=== PATIENT | male | born 1985 | race Caucasian/White ===

== ENCOUNTER 2017-07-14 15:40 | Emergency (ER) | payer OTHER ==
--- NOTE | 2017-07-14 16:13 | PD ---
HPI Chief Complaint: Alcohol intoxication Time Seen by Provider: 16:04 Travel History International Travel<30 days: No Contact w/Intl Traveler<30days: No History of Present Illness HPI 32-year-old male arrives by EMS. He is a [place] act. He drank alcohol today. [place]. He reports drinking approximately 2 drinks. He denies drug abuse. He has no medical complaints at the time of ER evaluation. [facility] Social History Tobacco Use: Yes Review of Systems Except as stated in HPI: all other systems reviewed are Neg General / Constitutional: No: Fever HENT: No: Lightheadedness Physical Exam Narrative GENERAL: 32 yo M, WNWD, cooperative no acute distress SKIN: Warm and dry. HEAD: Atraumatic. Normocephalic. EYES: Pupils equal and round. No scleral icterus. No injection or drainage. ENT: No nasal bleeding or discharge. Mucous membranes pink and moist. NECK: Trachea midline. No JVD. CARDIOVASCULAR: Regular rate and rhythm. RESPIRATORY: No accessory muscle use. Clear to auscultation. Breath sounds equal bilaterally. GASTROINTESTINAL: Abdomen soft, non-tender, nondistended. Hepatic and splenic margins not palpable. MUSCULOSKELETAL: Extremities without clubbing, cyanosis, or edema. No obvious deformities. NEUROLOGICAL: Awake and alert. No obvious cranial nerve deficits. Motor grossly within normal limits. Five out of 5 muscle strength in the arms and legs. Normal speech. PSYCHIATRIC: Cooperative. Well-nourished well-developed no distress MDM Medical Decision Making Medical Screen Exam Complete: Yes Emergency Medical Condition: Yes Medical Record Reviewed: Yes Differential Diagnosis Alcohol intoxication, drug abuse, polysubstance abuse Narrative Course Patient is intoxicated with alcohol. 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 Diagnosis Primary Impression: Alcohol intoxication Qualified Codes: F10.929 - Alcohol use, unspecified with intoxication, unspecified Referrals: [facility] for appointment Med/Other Pt SpecificInfo: No Change to Meds Disposition: 01 DISCHARGE HOME Condition: Stable Olivier Jeffrey MD July 14, 2017 16:13
[2017-07-14 16:26] VITALS: BP 136/72; PULSE 92; RESP 18; TEMP 98.5; O2SAT 100
== END 2017-07-14 18:03 | disposition home or self-care (01) ==
LOC: NEPD 15:40
DX: F10.129 Alcohol abuse with intoxication, unspecified (principal); Z72.0 Tobacco use
CPT/HCPCS: 99282